=== PATIENT | male | born 1955 | race Caucasian/White ===

== ENCOUNTER 2024-08-25 01:51 | Emergency (ER) | payer SELFPAY ==
[~2024-08-25] VITALS: Ht 180.3 cm; Wt 95.3 kg
[2024-08-25 02:18] LABS: BASOPHILS % (AUTO) 0.5 % (0.0-2.0); EOSINOPHILS # (AUTO) 0.1 K/uL (0.0-0.7); EOSINOPHILS % (AUTO) 2.2 % (0.0-7.0); HEMATOCRIT 40.5 % (36.7-47.1); HEMOGLOBIN 14.1 g/dL (12.5-16.3); LYMPHOCYTES # (AUTO) 1.9 K/uL (0.8-4.8); LYMPHOCYTES % (AUTO) 28.9 % (20.5-51.5); MEAN CORPUSCULAR HGB CONC 35 g/dL (32.5-36.3); MONOCYTES # (AUTO) 0.4 K/uL (0.1-1.30); MONOCYTES % (AUTO) 5.7 % (0.0-11.0); NEUTROPHILS # (AUTO) 4.2 K/uL (1.8-8.9); NEUTROPHILS % (AUTO) 62.7 % (38.5-71.5); PLATELET COUNT (AUTO) 152 K/uL (152-348); RED BLOOD CELL COUNT(AUTO) 4.55 MIL/uL (4.06-5.63); RED CELL DISTRIBUTION WIDTH 13.3 % (12.1-16.2); WHITE BLOOD COUNT (AUTO) 6.7 K/uL (3.6-10.2)
[2024-08-25] MEDS ORDERED: ROSU20TA2 PO (02:23)
[2024-08-25] MEDS ORDERED: ASPIRIN 81 MG TAB.CHEW ONE (02:26)
[2024-08-25] MEDS ORDERED: CLOPIDOGREL 75 MG TABLET ONE (02:27)
[2024-08-25] MEDS: ASPIRIN 81 MG TAB.CHEW PO ONE (02:30)
[2024-08-25] MEDS: CLOPIDOGREL 75 MG TABLET PO ONE (02:30)
[2024-08-25] MEDS ORDERED: HEPARIN SODIUM,PORCINE 5,000 UNITS/ML VIAL ONE (02:31)
[2024-08-25] MEDS: HEPARIN SODIUM,PORCINE 5,000 UNITS/ML VIAL IV STA (02:32)
[2024-08-25 02:36] VITALS: BP 122/65; TEMP 98.2; O2SAT 99
[2024-08-25 02:42] LABS: ALANINE AMINOTRANSFERASE 38 U/L (16-63); ALBUMIN 3.8 g/dL (3.4-5.0); ALKALINE PHOSPHATASE 79 U/L (50-136); ASPARTATE AMINOTRANSFERASE 24 U/L (15-37); BILIRUBIN,DIRECT 0.2 mg/dL (0.0-0.2); BILIRUBIN,TOTAL 0.6 mg/dL (0.2-1.0); CALCIUM 9.2 mg/dL (8.5-10.1); CARBON DIOXIDE 29 mmol/L (21-32); CHLORIDE 103 mmol/L (98-107); CREATININE 0.9 mg/dL (0.6-1.3); GLUCOSE 123 mg/dL (74-106); NT-PRO BNP 33 pg/mL (0-125); POTASSIUM 3.9 mmol/L (3.5-5.1); SODIUM SERUM 142 mmol/L (136-145); TOTAL PROTEIN, SERUM 7.3 g/dL (6.4-8.2); UREA NITROGEN, BLOOD 16 mg/dL (7-18)
== END 2024-08-25 02:28 | disposition short-term general hospital (02) ==
LOC: ER 02:03
DX: I21.3 ST elevation (STEMI) myocardial infarction of unspecified site (principal); R07.89 Other chest pain; E78.5 Hyperlipidemia, unspecified; Z79.899 Other long term (current) drug therapy
CPT/HCPCS: 99291; 96374; 80076; 80048; 83880; 85025; 85730; 84484; 36415; 71045; 93005; J1644; A4606; A4663